=== PATIENT | female | born 1975 | race Caucasian/White ===

== ENCOUNTER 2016-05-10 01:06 | Emergency (ER) | payer BC ==
[2016-05-10 01:13] VITALS: BP 140/80; PULSE 79; RESP 16; TEMP 97.8; O2SAT 97
--- NOTE | 2016-05-10 02:06 | C.PDOC ---
History Of Present Illness 40 y/o female presents to ED with complaint of sore throat and painful swallowing since Tuesday (3 days). Patient reports pain radiates to the right ear. Denies taking any medication for pain at home. Otherwise, denies fever, chills, cough, URI symptoms, headache, nausea, vomiting, or any other associated symptoms. Time Seen by Provider: 05/10/16 01:40 Chief Complaint (Nursing): ENT Problem History Per: Patient History/Exam Limitations: no limitations Current Symptoms Are (Timing): Still Present Sick Contacts (Context): None Associated Symptoms: Sore Throat. denies: Fever, Cough, Vomiting, Diarrhea Ear Symptoms: Left: None, Right: Ear Pain Recent travel outside of the [place]: No Past Medical History Reviewed: Historical Data, Nursing Documentation, Vital Signs Vital Signs: Last Vital Signs Temp 97.8 F 05/10/16 01:11 Pulse 79 05/10/16 01:11 Resp 16 05/10/16 01:11 BP 140/80 05/10/16 01:11 Pulse Ox 97 05/10/16 02:07 - Medical History PMH: Asthma Family History: States: Unknown Family Hx - Social History Hx Tobacco Use: No Hx Alcohol Use: No Hx Substance Use: No - Immunization History Hx Tetanus Toxoid Vaccination: No Hx Influenza Vaccination: No Hx Pneumococcal Vaccination: No Review Of Systems Except As Marked, All Systems Reviewed And Found Negative. Constitutional: Negative for: Fever, Chills ENT: Positive for: Ear Pain (R), Throat Pain. Negative for: Nose Discharge Respiratory: Negative for: Cough, Shortness of Breath Gastrointestinal: Negative for: Nausea, Vomiting Musculoskeletal: Negative for: Neck Pain Skin: Negative for: Rash Neurological: Negative for: Headache, Dizziness Physical Exam - Physical Exam Appears: Non-toxic, No Acute Distress Skin: Normal Color, Warm, Dry Head: Atraumatic, Normacephalic Eye(s): bilateral: Normal Inspection, PERRL, EOMI Ear(s): Bilateral: Normal Nose: Normal Oral Mucosa: Moist Lips: Normal Appearing Teeth: Normal Dentition Throat: Normal, No Erythema, No Exudate, No Drooling Neck: Supple Chest: Symmetrical Cardiovascular: Rhythm Regular Respiratory: Normal Breath Sounds, No Rhonchi Neurological/Psych: Oriented x3, Normal Speech, Normal Cognition Gait: Steady ED Course And Treatment O2 Sat by Pulse Oximetry: 97 (RA) Pulse Ox Interpretation: Normal Progress Note: Treated with Motrin. On reassessment, patient is resting comfortably, and is in no acute distress. Patient reports improvement of throat pain. Patient instructed to follow up with clinic/PMD within 1-2 days. 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 - Scribe Statement The provider has reviewed the documentation as recorded by the Lupe Polanco Provider Scribe Attestation: All medical record entries made by the Lupe were at my direction and personally dictated by me. I have reviewed the chart and agree that the record accurately reflects my personal performance of the history, physical exam, medical decision making, and the department course for this patient. I have also personally directed, reviewed, and agree with the discharge instructions and disposition.
== END 2016-05-10 02:25 | disposition home or self-care (01) ==
LOC: C.ER 01:06
DX: J02.9 Acute pharyngitis, unspecified (principal)

== ENCOUNTER 2017-02-28 21:10 | Emergency (ER) | payer BC ==
[2017-02-28 21:49] VITALS: BP 126/82; PULSE 84; RESP 18; TEMP 98.2; O2SAT 99
[2017-02-28 22:15] LABS: HCG,QUALITATIVE URINE NEGATIVE (NEGATIVE); SQUAMOUS EPITHIAL 10 /hpf (0-5); URINE BACTERIA RARE (<OCC); URINE BILIRUBIN NEGATIVE (NEGATIVE); URINE CLARITY Clear (Clear); URINE COLOR Straw (YELLOW); URINE GLUCOSE (UA) NORMAL (Normal); URINE LEUKOCYTE ESTERASE NEG Leu/uL (Negative); URINE NITRATE NEGATIVE (NEGATIVE); URINE PROTEIN NEGATIVE (NEGATIVE); URINE UROBILINOGEN NORMAL mg/dL (0.2-1.0)
[2017-02-28 22:16] LABS: URINE BLOOD 1+ (NEGATIVE)
--- NOTE | 2017-02-28 23:17 | C.PDOC ---
History Of Present Illness 41 year old female presents to the ER with a complaint of pelvic pain intermittently for the past month, associated with intermittent hematuria. Patient also reports a cough for the past 2 weeks, she notes she went to see her PMD who referred her to get a CXR; patient is requesting CXR now.. Denies dysuria, vaginal discharge, or abdominal pain at this time. Time Seen by Provider: 02/28/17 21:54 Chief Complaint (Nursing): Female Genitourinary History Per: Patient History/Exam Limitations: no limitations Onset/Duration Of Symptoms: Days, Intermittent Episodes Current Symptoms Are (Timing): Gone Location Of Pain/Discomfort: Other (Pelvic) Radiation Of Pain To:: None Quality Of Discomfort: Unable To Describe Associated Symptoms: Urinary Symptoms (Hematuria). denies: Fever, Chills, Nausea, Vomiting, Other (Vaginal discharge) Exacerbating Factors: None Alleviating Factors: None Recent travel outside of the [place]: No Abnormal Vaginal Bleeding: No Past Medical History Reviewed: Historical Data, Nursing Documentation, Vital Signs Vital Signs: Last Vital Signs Temp 98.2 F 02/28/17 21:45 Pulse 84 02/28/17 21:45 Resp 18 02/28/17 21:45 BP 126/82 02/28/17 21:45 Pulse Ox 99 03/01/17 01:31 - Medical History PMH: Asthma, Fibromyalgia Surgical History: Family History: States: No Known Family Hx - Social History Hx Tobacco Use: No Hx Alcohol Use: No Hx Substance Use: No - Immunization History Hx Tetanus Toxoid Vaccination: No Hx Influenza Vaccination: No Hx Pneumococcal Vaccination: No Review Of Systems Constitutional: Negative for: Fever, Chills Gastrointestinal: Negative for: Nausea, Vomiting Genitourinary: Positive for: Hematuria, Pelvic Pain. Negative for: Dysuria Physical Exam - Physical Exam Appears: Non-toxic, No Acute Distress Skin: Normal Color, Warm, Dry Head: Atraumatic, Normacephalic Eye(s): bilateral: Normal Inspection Oral Mucosa: Moist Chest: Symmetrical, No Tenderness Cardiovascular: Rhythm Regular Respiratory: Normal Breath Sounds, No Rales, No Rhonchi, No Wheezing Gastrointestinal/Abdominal: Soft, No Tenderness, No Distention Pelvic: Other (pt refused) Neurological/Psych: Oriented x3, Normal Speech ED Course And Treatment O2 Sat by Pulse Oximetry: 99 (Room air) Pulse Ox Interpretation: Normal - Radiology CXR: Interpreted by Me, Viewed By Me CXR Interpretation: Yes: No Acute Disease Progress Note: Urinalysis and CXR ordered, results were negative. Patient reassured she is in no acute danger at this time and instructed to follow up with PMD for further evaluation. 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 - Scribe Statement The provider has reviewed the documentation as recorded by the Scribparul Rivera All medical record entries made by the Kariibparul were at my direction and personally dictated by me. I have reviewed the chart and agree that the record accurately reflects my personal performance of the history, physical exam, medical decision making, and the department course for this patient. I have also personally directed, reviewed, and agree with the discharge instructions and disposition.
--- NOTE | 2017-03-01 08:18 | RAD ---
HISTORY: cough, fever COMPARISON: 04/25/2012 TECHNIQUE: Chest PA and lateral FINDINGS: LUNGS: No current consolidation. Prior patchy right hilar/ perihilar to right lung base coalescent defined opacities consistent with prior 2013 infiltrate not now appreciated. PLEURA: No significant pleural effusion identified. No pneumothorax apparent. CARDIOVASCULAR: Normal. OSSEOUS STRUCTURES: No significant abnormalities. VISUALIZED UPPER ABDOMEN: Normal. OTHER FINDINGS: None. IMPRESSION: No interval pathology noted. Prior coalescing infiltrate 2012 resolved
== END 2017-02-28 23:38 | disposition home or self-care (01) ==
LOC: C.ER 21:10
DX: R10.2 Pelvic and perineal pain (principal); J06.9 Acute upper respiratory infection, unspecified

== ENCOUNTER 2017-09-05 17:19 | Emergency (ER) | payer BC ==
[2017-09-05 17:37] VITALS: BMI 29.5
[2017-09-05 17:40] VITALS: O2SAT 100
--- NOTE | 2017-09-05 18:19 | C.PDOC ---
History Of Present Illness <Shiela Lord - Last Filed: 09/05/17 18:45> <Venita Mercado - Last Filed: 09/05/17 20:41> 41 year old female who is "4 weeks ' per patient, with lmp in end of june , A2, presents to the ED c/o abdominal pain that started 2 weeks ago. Patient reports today she started bleeding a lot with multiple pads changed and passing clots. 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 Patient denies fever, chills, nausea, vomit, diarrhea, back pain, some dysuria. ( Shiela Lord) History Per: Patient History/Exam Limitations: no limitations Onset/Duration Of Symptoms: Days Current Symptoms Are (Timing): Still Present Quality Of Discomfort: "Pain" Associated Symptoms: Urinary Symptoms. denies: Nausea, Vomiting, Diarrhea Recent travel outside of the [place]: No Additional History Per: Patient Abnormal Vaginal Bleeding: Yes Last Menstral Period: end of June : 6 Para: 3 Miscarriage: 2 <Shiela Lord - Last Filed: 09/05/17 18:45> <Venita Mercado - Last Filed: 09/05/17 20:41> Time Seen by Provider: 09/05/17 18:08 Chief Complaint (Nursing): Female Genitourinary Past Medical History Reviewed: Historical Data, Nursing Documentation, Vital Signs - Medical History PMH: Asthma, Fibromyalgia Surgical History: Family History: States: Unknown Family Hx - Social History Hx Tobacco Use: No Hx Alcohol Use: No Hx Substance Use: No - Immunization History Hx Tetanus Toxoid Vaccination: No Hx Influenza Vaccination: No Hx Pneumococcal Vaccination: No <Shiela Lord - Last Filed: 09/05/17 18:45> Vital Signs: Last Vital Signs Temp 98.1 F 09/05/17 17:37 Pulse 74 09/05/17 17:37 Resp 20 09/05/17 17:37 BP 127/83 09/05/17 17:37 Pulse Ox 100 09/05/17 19:03 Review Of Systems Constitutional: Negative for: Fever, Chills Cardiovascular: Negative for: Chest Pain, Palpitations Respiratory: Negative for: Cough, Shortness of Breath Gastrointestinal: Positive for: Abdominal Pain. Negative for: Nausea, Vomiting Genitourinary: Positive for: Vaginal Bleeding Musculoskeletal: Negative for: Back Pain Neurological: Negative for: Weakness, Numbness <Shiela Lord - Last Filed: 09/05/17 18:45> Physical Exam - Physical Exam Appears: Non-toxic, No Acute Distress Skin: Normal Color, Warm, Dry Head: Atraumatic, Normacephalic Eye(s): bilateral: Normal Inspection Oral Mucosa: Moist Neck: Normal ROM, Supple Chest: Symmetrical Cardiovascular: Rhythm Regular Respiratory: Normal Breath Sounds, No Rales, No Rhonchi, No Wheezing Gastrointestinal/Abdominal: Soft, No Tenderness, No Guarding, No Rebound Extremity: Normal ROM, No Tenderness, No Swelling Neurological/Psych: Oriented x3, Normal Speech Gait: Steady <Shiela Lord - Last Filed: 09/05/17 18:45> ED Course And Treatment O2 Sat by Pulse Oximetry: 100 (ON RA) Pulse Ox Interpretation: Normal <Shiela Lord - Last Filed: 09/05/17 18:45> - Laboratory Results Result Diagrams: 09/05/17 19:21 09/05/17 19:21 Pulse Ox Interpretation: Normal Reevaluation Time: 20:39 Reassessment Condition: Improved <Venita Mercado - Last Filed: 09/05/17 20:41> Medical Decision Making <Shiela Lord - Last Filed: 09/05/17 18:45> <Venita Mercado - Last Filed: 09/05/17 20:41> Medical Decision Making: Impression: abdominal pain, vaginal bleeding Plan: * UA 1842 pt with neg urine poc in ed; will get labs, to check cbc and beta hcg. ( Shiela Lord) Disposition - Disposition Disposition Time: 19:03 <Shiela Lord - Last Filed: 09/05/17 18:45> Counseled Patient/Family Regarding: Studies Performed, Diagnosis, Need For Followup <Venita Mercado - Last Filed: 09/05/17 20:41> - Disposition Referrals: [facility] [Outside] [facility] [Outside] Disposition: HOME/ ROUTINE Condition: GOOD Additional Instructions: Please return if 7 days for repeat [facility] Instructions: Threatened Miscarriage (DC) Forms: [facility] (C[place]riot) - Clinical Impression Clinical Impression: Vaginal bleeding, Threatened - 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 - Scribe Statement The provider has reviewed the documentation as recorded by the Scribe <Shiela Lord - Last Filed: 09/05/17 18:45> <Venita Mercado - Last Filed: 09/05/17 20:41> - Scribe Statement Easton Corral All medical record entries made by the Scribe were at my direction and personally dictated by me. I have reviewed the chart and agree that the record accurately reflects my personal performance of the history, physical exam, medical decision making, and the department course for this patient. I have also personally directed, reviewed, and agree with the discharge instructions and disposition. (Shiela Lord) Physician Patient Turnover Patient Signed Over To: Venita Mercado Handoff Comments: f/u labs; if beta pos, check t and screen; information engineer consult if needed. <Shiela Lord - Last Filed: 09/05/17 18:45>
[2017-09-05 19:13] LABS: SQUAMOUS EPITHIAL 3 /hpf (0-5); URINE BILIRUBIN NEGATIVE (NEGATIVE); URINE BLOOD 3+ (NEGATIVE); URINE CLARITY Clear (Clear); URINE COLOR Yellow (YELLOW); URINE GLUCOSE (UA) NORMAL (Normal); URINE LEUKOCYTE ESTERASE NEG Leu/uL (Negative); URINE PROTEIN NEGATIVE (NEGATIVE); URINE UROBILINOGEN NORMAL mg/dL (0.2-1.0)
[2017-09-05 19:24] LABS: BASO % 0.4 % (0.0-2.0); EOS # 0.1 K/uL (0.0-0.7); EOS % 0.7 % (0.0-4.0); HEMOGLOBIN 11.4 g/dL (11.0-16.0); LYMPH # 2.1 K/uL (1.0-4.3); LYMPH % 19.1 % (20.0-40.0); MEAN CELL VOLUME 75.1 fL (81.0-99.0); MEAN CORPUSCULAR HEMOGLOBIN 24.3 pg (27.0-31.0); MEAN CORPUSCULAR HGB CONC 32.3 g/dL (33.0-37.0); MEAN PLATELET VOLUME 7.5 fL (7.2-11.7); MONO # 0.8 K/uL (0.0-0.8); MONO % 7.5 % (0.0-10.0); NEUT # 7.8 K/uL (1.8-7.0); NEUT % 72.3 % (50.0-75.0); RBC 4.7 Mil/uL (3.80-5.20); RED CELL DISTRIBUTION WIDTH 17.1 % (11.5-14.5); WHITE BLOOD COUNT 10.8 K/uL (4.8-10.8)
[2017-09-05 19:38] LABS: ALB/GLOB RATIO 1.3 (1.0-2.1); ALBUMIN 4.2 g/dL (3.5-5.0); ALT/SGPT 17 U/L (9-52); AST/SGOT 11 U/L (14-36); BLOOD UREA NITROGEN 9 mg/dL (7-17); CALCIUM 8.9 mg/dl (8.6-10.4); GFR AFRICAN-AMERICAN > 60; GFR NON-AFRICAN AMERICAN > 60
[2017-09-05 20:44] VITALS: BP 125/80; PULSE 66; RESP 16; TEMP 99
== END 2017-09-05 20:49 | disposition home or self-care (01) ==
LOC: C.ER 17:19
DX: O20.0 Threatened abortion (principal); Z3A.01 Less than 8 weeks gestation of pregnancy